=== PATIENT | female | born 1970 | race Caucasian/White ===

== ENCOUNTER 2016-08-27 12:00 | Emergency (ER) | payer OTHER, SELFPAY ==
[2016-08-27] MEDS ORDERED: Ketorolac Tromethamine 30 MG/ML VIAL ONE (12:11)
[2016-08-27] MEDS ORDERED: Ondansetron HCl/PF 4 MG/2 ML Vial ONE (12:11)
[2016-08-27 12:32] LABS: #Basophils 0.1 thou/uL (0.0-0.2); #Eosinphils 0.2 thou/uL (0.0-0.7); #Lymphocytes 1.8 thou/uL (1.20-3.40); #Monocytes 0.6 thou/uL (0.11-0.59); #Neutrophils 8.9 thou/uL (1.40-6.50); %Basophils 0.5 % (0.0-1.0); %Eosinophils 1.5 % (0.0-10.0); %Monocytes 5.1 % (0.0-10.0); Hematocrit 39.5 % (36.0-47.0); Red Blood Cell (RBC) Count 4.82 mill/uL (4.20-5.40); White Blood Cell (WBC) Count 11.6 thou/uL (4.8-10.8)
[2016-08-27 12:42] LABS: ALT (SGPT) 14 U/L (0-55); AST (SGOT) 16 U/L (5-34); Alkaline Phosphatase 82 U/L (40-150); Anion Gap 18 mmol/L (10-20); BUN (Urea Nitrogen) 9 mg/dL (7.0-18.7); Bilirubin, Total 0.3 mg/dL (0.2-1.2); Calc. Creatinine Clearance 0 mL/min (70-130); Calcium 9.1 mg/dL (7.8-10.44); Carbon Dioxide 21 mmol/L (22-29); Chloride 105 mmol/L (98-107); Estimated GFR-MDRD 75; Globulin 3.4 g/dL (2.4-3.5); Protein, Total 7.6 g/dL (6.0-8.3)
[2016-08-27 12:46] LABS: Troponin I Less than 0.010 ng/mL (< 0.028)
[2016-08-27] MEDS ORDERED: Sodium Chloride 0.9% 100 ML ONE (13:33)
[2016-08-27] MEDS ORDERED: cefTRIAXone\\ROCEPHIN 1 GM VIAL ONE (13:33)
[2016-08-27 13:51] LABS: Bilirubin Negative (Negative); Blood, Urine Negative (Negative); Glucose, Urine (Dipstick) Negative (Negative); Ketone, Urine Negative (Negative); Nitrite Negative (Negative); Protein, Urine (Dipstick) Negative (Neg-Trace); Urobilinogen 0.2 mg/dL (0.2-1.0)
--- NOTE | 2016-08-27 14:38 | CT ---
CT ABDOMEN AND PELVIS WITH CONTRAST: Date: 08/27/[address] of the abdomen and pelvis was performed with IV contrast for evaluation of right upper ita drant pain. Axial slices were acquired, then coronal reconstructions were done. FINDINGS: The gallbladder is quite large, measuring about 13.0 cm in length. Gallstones are present internally and one appears to be lodged in the neck of the gallbladder. The liver is slightly generous in size , but shows no dilated ducts or focal lesions. The spleen, pancreas, adrenal glands, and kidneys carl ear normal. There is an abundance of fluid in the stomach and duodenum, but this may be reactive to the gallbladder findings. The remainder of the bowel shows no distention or inflammatory change arou nd it. The appendix appears normal. There is no sign of diverticulitis, free air, or free fluid. CT of the pelvis shows no pelvic masses, fluid collections, or inflammatory changes. The adnexa area s were unremarkable. The bony structures showed no acute findings. IMPRESSION: 13.0 cm long gallbladder containing gallstones, one of which is lodged in the neck of the gallbladde r. Findings discussed with Dr. Oliveros at 1317 hours on 08/27/16. CODE CR. POS: HOME
== END 2016-08-27 13:55 | disposition short-term general hospital (02) ==
LOC: BURERS 12:00
DX: K80.00 Calculus of gallbladder with acute cholecystitis without obstruction (principal); E03.9 Hypothyroidism, unspecified; F32.9 Major depressive disorder, single episode, unspecified; F41.9 Anxiety disorder, unspecified; Z79.899 Other long term (current) drug therapy
CPT/HCPCS: 74177; 80053; 81003; 81025; 82553; 84484; 85025; 93005; 96361; 96374; 96375; J0696; J1885; J2270; J2405; J7050